=== PATIENT | male | born 1945 | race Caucasian/White ===

== ENCOUNTER 2016-12-18 06:39 | Day surgery (SDC) | payer MEDICARE, BC ==
[2016-12-18] MEDS ORDERED: Dextrose 5%-Lactated Ringers 1,000 ML IV SCH (07:00)
[2016-12-18] MEDS ORDERED: Midazolam 1 MG/ML 2 ML SDV ONE (07:14)
[2016-12-18] MEDS ORDERED: fentaNYL 100 MCG/2 ML SDV ONE (07:14)
[2016-12-18] MEDS ORDERED: Propofol 200 MG/20 ML SDV ONE (07:14)
[2016-12-18 11:11] VITALS: BP 141/77
--- NOTE | 2016-12-23 10:46 | OR ---
DATE OF PROCEDURE: 12/18/2016 PREOPERATIVE DIAGNOSIS: Indications for screening colonoscopy. POSTOPERATIVE DIAGNOSIS: Uncomplicated left colonic diverticulosis. OPERATIVE PROCEDURE: Flexible colonoscopy. ANESTHESIA: IV sedation. INDICATIONS FOR PROCEDURE: A 71-year-old male presenting with indications for screening colonoscopy. Plan is to proceed with a colonoscopy with biopsies and/or polypectomy as indicated. Potential risks including bleeding and perforation were discussed and the patient wishes to proceed. DETAILS OF PROCEDURE: The patient was taken to the operating room and placed in a left lateral decubitus position. IV sedation was administered after which the initial digital rectal exam was performed and was unremarkable. Colonoscope was then passed to the level of the rectum where retroflexion revealed uncomplicated hemorrhoidal columns. The scope was then eventually passed to the cecum. The prep was fairly good. There was a small amount of liquid and solid stool present, but generally the prep was satisfactory. The only abnormality noted was that of some scattered left-sided diverticula which were otherwise uncomplicated. Otherwise, there were no areas of colitis. No polyps or signs of neoplasia. The scope was then withdrawn, the above findings reconfirmed, and the procedure concluded. The patient was taken to the recovery room in a satisfactory condition. Recommendation would be to assess the patient's health status in 10 years. If it remains quite good, one may consider followup colonoscopy, otherwise, that would be per the physician's discretion at that time. Harvey Green MD /[id number]
== END 2016-12-18 11:00 | disposition home or self-care (01) ==
LOC: JP.SDS 06:39
PROVIDERS: ATTEND Surgery
DX: Z12.11 Encounter for screening for malignant neoplasm of colon (principal); K57.30 Diverticulosis of large intestine without perforation or abscess without bleeding; K64.9 Unspecified hemorrhoids; I10 Essential (primary) hypertension; E78.00 Pure hypercholesterolemia, unspecified; Z79.899 Other long term (current) drug therapy
CPT/HCPCS: G0121; J2250; J2704; J3010; J7042

== ENCOUNTER 2018-04-28 07:06 | Day surgery (SDC) | payer BC, MEDICARE ==
[~2018-04-28 07:06] MED LIST: Bupivacaine 0.5% 30 ML SDV ONE; Lidocaine 1% with EPINEPHrine 1:100,000 50 ML MDV ONE
[2018-04-28] MEDS ORDERED: Dextrose 5%-Lactated Ringers 1,000 ML IV SCH (07:15)
[2018-04-28] MEDS ORDERED: Albuterol/Ipratropium 3.0-0.5 MG/3 ML Neb Soln NEB ONE (07:30)
[2018-04-28] MEDS ORDERED: Meropenem 500 MG in Sodium Chloride 0.9% 50 ML IV ONE (08:00)
[2018-04-28] MEDS ORDERED: fentaNYL 100 MCG/2 ML SDV ONE (08:33)
[2018-04-28] MEDS ORDERED: Propofol 200 MG/20 ML SDV ONE (08:33)
[2018-04-28] MEDS ORDERED: Midazolam 1 MG/ML 2 ML SDV ONE (08:33)
[2018-04-28 10:15] VITALS: BP 126/64
--- NOTE | 2018-05-05 14:15 | OR ---
DATE OF PROCEDURE: 04/28/2018 PREOPERATIVE DIAGNOSIS: Large epidermoid cyst, upper and mid back. POSTOPERATIVE DIAGNOSIS: Large epidermoid cyst, upper and mid back with subfascial extension. OPERATIVE PROCEDURE: Excision of epidermoid cyst, upper and mid back with subfascial extension ([id number]). ANESTHESIA: Local plus IV sedation. INDICATION FOR PROCEDURE: A 72-year-old presenting with an increasing symptomatic mass on his upper back. Clinically, this was an epidermoid cyst. Plan is to proceed with excision of this. Potential risks including bleeding and infection were reviewed, and the patient wishes to proceed. DETAILS OF PROCEDURE: The patient was taken to the operating room and placed in a left lateral decubitus position. The upper back and neck areas were then prepped and draped and IV sedation administered. A transversely oriented elliptical incision was made around the lesion and carried down through the skin and subcutaneous tissue. Dissection then continued around the lesion. This then led to dissection behind the point where the cyst extended beneath the fascia and underneath the paraspinal musculature. This was dissected free and the lesion then otherwise removed intact with a small amount of remaining overlying skin. At that point, the lesion was measured and noted to be 5.2 cm. The incision was closed with 3 layers of 3-0 and 4-0 Vicryl stitch deep and then a layer of skin joanna. Dressing was applied. The patient was taken to the recovery room in satisfactory condition. Local anesthetic was used in this case with 0.5% Marcaine with 1% lidocaine mix and a total of 12 mL of local anesthetic was used. Harvey Green MD /[id number]
== END 2018-04-28 10:30 | disposition home or self-care (01) ==
LOC: JP.SDS 07:06
PROVIDERS: ATTEND Surgery
DX: L72.0 Epidermal cyst (principal); I10 Essential (primary) hypertension; J44.9 Chronic obstructive pulmonary disease, unspecified; E66.01 Morbid (severe) obesity due to excess calories; K21.9 Gastro-esophageal reflux disease without esophagitis
CPT/HCPCS: 11406; 12032; 88304; 94640; J2185; J2250; J2704; J3010; J3490; J7042; J7050; J7620-GY